=== PATIENT | female | born 1935 | race Hispanic/Latino ===

== ENCOUNTER 2018-02-27 10:02 | Day surgery (SDC) | payer MEDICARE ==
[2018-02-25 10:34] VITALS: BMI 21.9
[2018-02-27] MEDS ORDERED: Iodixanol 320 MG/ML 100 ML BOTTLE IV ONE (17:47)
[2018-02-27] MEDS ORDERED: Midazolam 2 MG/2 ML VIAL ONE (17:47)
[2018-02-27] MEDS ORDERED: Iodixanol 320 MG/ML 200 ML BOTTLE IV ONE (17:47)
[2018-02-27] MEDS ORDERED: Lidocaine 2% MPF (5 ml) Inj ONE (17:51)
[2018-02-27] MEDS ORDERED: Sodium Chloride 0.9% 500 ML IV SCH (18:45)
--- NOTE | 2018-03-01 23:20 | CARDCATH ---
Copied To: Curtis Mayfield MD Attending MD: Curtis Mayfield MD PROCEDURE DATE: 02/27/2018 PERFORMING PHYSICIAN: Curtis Mayfield MD CLINICAL INDICATIONS: Chest pain, hypertension, hyperlipidemia, and abnormal stress test. DESCRIPTION OF PROCEDURE: After informed consent, the patient was prepped and draped in the usual sterile fashion. Lidocaine 2% was given in the left groin for local anesthesia. Using micropuncture technique, a 6-Honduran sheath was introduced into the left common femoral artery. JR4 6-Honduran diagnostic catheter crossed into the left ventricle across the aortic valve. LV and diastolic pressure measured. Contrast injected and LV angiogram was done. Then, the catheter was pulled back across the aortic valve. The gradient across the aortic valve was measured. Then, the same catheter was engaged into the right coronary artery. Contrast was injected and right coronary angiogram was done. Then, the catheter was exchanged to JL4 6-Honduran diagnostic catheter. The catheter was engaged into the left main coronary artery. Contrast injected and left coronary angiogram was done. The patient tolerated the procedure well. Radiological supervision and radiological imaging with coronary interpretation were done. FINDINGS: 1. Left main coronary artery is patent. 2. LAD and diagonal branches are patent. 3. Left circumflex and obtuse marginal branches are patent. 4. Right coronary artery is dominant and patent. 5. LV ejection fraction is approximately 65%. No wall motion abnormality is noted. EDP is 12. No gradient across the aortic valve. IMPRESSION: 1. Normal coronaries. 2. Normal left ventricular systolic function. RECOMMENDATIONS: Recommend medical management. Curtis Mayfield MD
== END 2018-02-27 21:41 | disposition home or self-care (01) ==
LOC: C.CATHLAB 10:02
PROVIDERS: ATTEND Internal Medicine Cardiovascular Disease
DX: R94.39 Abnormal result of other cardiovascular function study (principal); R07.89 Other chest pain; E78.5 Hyperlipidemia, unspecified; I10 Essential (primary) hypertension
CPT/HCPCS: 93458; 99152; 99153; C1758; C1760; C1769; C1887; J1644; J2250; J3010; J7040; Q9966; Q9967